=== PATIENT | male | born 1995 | race Caucasian/White ===

== ENCOUNTER 2022-05-11 19:17 | Emergency (ER) | payer SELFPAY ==
[~2022-05-11] VITALS: Ht 175.2 cm; Wt 70.3 kg
[2022-05-11] MEDS ORDERED: BAYER ASPIRIN C81 MG PO (19:26)
[2022-05-11] MEDS ORDERED: PHARMASSURE FO0.4 MG PO (19:26)
[2022-05-11] MEDS ORDERED: HYDROCODONE-AC1 EAC1 PO (21:39)
== END 2022-05-11 21:41 | disposition home or self-care (01) ==
LOC: ED 19:17
DX: T23.201A Burn of second degree of right hand, unspecified site, initial encounter (principal); T23.202A Burn of second degree of left hand, unspecified site, initial encounter; T20.10XA Burn of first degree of head, face, and neck, unspecified site, initial encounter; T23.231A Burn of second degree of multiple right fingers (nail), not including thumb, initial encounter; T23.232A Burn of second degree of multiple left fingers (nail), not including thumb, initial encounter; T31.0 Burns involving less than 10% of body surface; Z79.82 Long term (current) use of aspirin; Z79.899 Other long term (current) drug therapy; F17.200 Nicotine dependence, unspecified, uncomplicated; X08.8XXA Exposure to other specified smoke, fire and flames, initial encounter; Y93.89 Activity, other specified; Y92.89 Other specified places as the place of occurrence of the external cause; Y99.8 Other external cause status